=== PATIENT | female | born 1970 | race Caucasian/White ===

== ENCOUNTER 2025-04-21 16:34 | Emergency (ER) | payer SELFPAY ==
[~2025-04-21] VITALS: Ht 162.6 cm; Wt 81.6 kg
[2025-04-21 16:37] VITALS: BP 164/92
[2025-04-21] MEDS ORDERED: METO-356 PO (16:49)
[2025-04-21] MEDS ORDERED: NAPR-1009 PO (17:20)
[2025-04-21] MEDS ORDERED: ACET1TAB23 PO (17:20)
[2025-04-21 17:27] VITALS: BP 150/89; TEMP 98.7; O2SAT 97
== END 2025-04-21 17:27 | disposition home or self-care (01) ==
LOC: ER 16:37
DX: M54.42 Lumbago with sciatica, left side (principal); M79.605 Pain in left leg; E88.810 Metabolic syndrome; I10 Essential (primary) hypertension; F17.200 Nicotine dependence, unspecified, uncomplicated; Z79.899 Other long term (current) drug therapy; Z85.3 Personal history of malignant neoplasm of breast; Z86.73 Personal history of transient ischemic attack (TIA), and cerebral infarction without residual deficits; Z88.7 Allergy status to serum and vaccine; Z90.710 Acquired absence of both cervix and uterus; Z60.2 Problems related to living alone
CPT/HCPCS: A4606; A4663